=== PATIENT | female | born 1960 | race Caucasian/White ===

== ENCOUNTER 2021-08-21 14:22 | Emergency (ER) | payer OTHER ==
[~2021-08-21] VITALS: Ht 165.1 cm; Wt 65.3 kg
--- NOTE | 2021-08-21 14:47 | NUR ---
CALLED TO TRIAGE NO ANSWER.
--- NOTE | 2021-08-21 14:57 | NUR ---
BIB FOR C/O RIGHT LOWER ABD PAIN RADIATING TO BACK /10 AND C/O PAINFULL URINATION, BLOOD TINGED URINE. X4 DAYS. ABDOMEN SOFT AND NON-DISTENDED. WILL CONTINUE TO MONITOR THE PATIENT.
--- NOTE | 2021-08-21 15:04 | NUR ---
URINE COLLECTED AND SENT TO THE LAB
--- NOTE | 2021-08-21 15:14 | NUR ---
STARTED IV LINE, BLOOD SPECIMEN COLLECTED AND SENT TO THE LAB. THE LINE IS SALINE LOCKED.
[2021-08-21] MEDS ORDERED: KETOROLAC TROMETHAMINE INJ 30 MG/ML VIAL IV ONE (15:30)
[2021-08-21] MEDS ORDERED: KETOROLAC TROMETHAMINE 15 MG/ML VIAL ONE (15:34)
[2021-08-21 15:36] LABS: BASOPHILS % (AUTO) 0.4 % (0.0-2.0); EOSINOPHILS % (AUTO) 0.5 % (0.0-6.0); HEMATOCRIT 39 % (33-45); HEMOGLOBIN 12.6 g/dL (11.5-14.8); MEAN CORPUSCULAR HGB CONC 33 g/dl (31.0-36.0); MEAN CORPUSCULAR VOLUME 87 fL (82-100); MONOCYTES # (AUTO) 0.5 K/uL (0.1-1.30); MONOCYTES % (AUTO) 4.7 % (2.0-12.0); NEUTROPHILS # (AUTO) 8.2 K/uL (1.8-8.9); NEUTROPHILS % (AUTO) 84.4 % (43.0-81.0); PLATELET COUNT (AUTO) 221 K/uL (150-450); RED BLOOD CELL COUNT(AUTO) 4.44 MIL/uL (4.0-5.2); WHITE BLOOD COUNT (AUTO) 9.7 K/uL (4.3-11.0)
[2021-08-21 15:39] LABS: BILIRUBIN,URINE NEGATIVE (NEGATIVE); COLOR,URINE YELLOW (YELLOW); LEUKOCYTE ESTERASE ,URINE MODERATE (NEGATIVE); NITRITE, URINE POSITIVE (NEGATIVE); PROTEIN,URINE >=300 mg/dl (NEGATIVE); UGLUCOSE NEGATIVE (NEGATIVE); UROBILINOGEN,URINE 0.2 EU/dL (0.2)
[2021-08-21 15:48] LABS: RBC,URINE 51-80 /HPF (0-2); WBC,URINE TOO NUMEROUS TO COUN /HPF (0-3)
[2021-08-21 15:49] LABS: BACTERIA,URINE 3+ /HPF (None Seen); SQUAMOUS EPITHELIAL CELL,UR 0-2 /HPF (None Seen)
[2021-08-21 15:55] LABS: BILIRUBIN,DIRECT 0.1 mg/dL (0.0-0.2); BILIRUBIN,TOTAL 0.3 mg/dL (0.2-1.0); CREATININE 0.7 mg/dL (0.6-1.3); POTASSIUM 3.6 mmol/L (3.5-5.1); TOTAL PROTEIN, SERUM 8.3 g/dL (6.4-8.2)
--- NOTE | 2021-08-21 15:57 | NUR ---
PATIENT RETURNED TO ER ROOM [address]
[2021-08-21] MEDS ORDERED: CEFTRIAXONE 1GM BAG (ER ONLY) 50 ML IV ONE (17:43)
[2021-08-21] MEDS ORDERED: IBUPROFEN 600 MG TABLET ONE (17:43)
[2021-08-21] MEDS ORDERED: IBUPROFEN 600 MG TABLET PO ONE (18:00)
[2021-08-21] MEDS ORDERED: CEFTRIAXONE 1 G in IV D5W 50 ML IV ONE (18:00)
[2021-08-21] MEDS ORDERED: CEPH250C PO (18:27)
[2021-08-21] MEDS ORDERED: IBUP-1955 PO (18:28)
[2021-08-21 18:49] VITALS: BP 129/76
--- NOTE | 2021-08-21 18:49 | NUR ---
IV removed. Catheter intact and site benign. Pressure and 4x4 applied to site. No bleeding noted.Patient discharged to home in stable condition. Written and verbal after care instructions given. Patient verbalizes understanding of instruction.
== END 2021-08-21 18:49 | disposition home or self-care (01) ==
LOC: ER 14:27
DX: N12 Tubulo-interstitial nephritis, not specified as acute or chronic (principal); Z90.89 Acquired absence of other organs; Z98.890 Other specified postprocedural states
CPT/HCPCS: 36415; 74176; 80048; 80076; 81001; 83690; 85025; 87077; 87086; 87186; 96365; 99284; J0696; J1885

== ENCOUNTER 2023-10-12 23:39 | Inpatient (IN) | payer OTHER ==
[~2023-10-12] VITALS: Ht 152.4 cm; Wt 60.9 kg
[~2023-10-12 23:39] MED LIST: CEPH250C PO; IBUP-1955 PO
[2023-10-13] MEDS ORDERED: MORPHINE SULFATE INJ 4 MG/ML DISP.SYRIN ONE (00:17)
[2023-10-13] MEDS ORDERED: ONDANSETRON HCL/PF 4 MG/2 ML VIAL ONE (00:17)
[2023-10-13] MEDS ORDERED: IV NS 0.9% 1,000 ML BAG IV ONE (00:30)
[2023-10-13] MEDS ORDERED: ONDANSETRON HCL/PF 4 MG/2 ML VIAL IVP ONE (00:30)
[2023-10-13] MEDS ORDERED: MORPHINE SULFATE INJ 2 MG/ML DISP.SYRIN IV ONE (00:30)
[2023-10-13 00:37] LABS: BASOPHILS % (AUTO) 0.3 % (0.0-2.0); EOSINOPHILS % (AUTO) 0.1 % (0.0-6.0); HEMATOCRIT 39 % (33-45); HEMOGLOBIN 12.8 g/dL (11.5-14.8); LYMPHOCYTES # (AUTO) 0.7 K/uL (0.8-4.8); LYMPHOCYTES % (AUTO) 8.9 % (20.0-44.0); MEAN CORPUSCULAR HEMOGLOBIN 28 PG (26.0-33.0); MEAN CORPUSCULAR HGB CONC 33 g/dl (31.0-36.0); MEAN CORPUSCULAR VOLUME 86 fL (82-100); MONOCYTES # (AUTO) 0.2 K/uL (0.1-1.30); MONOCYTES % (AUTO) 3.3 % (2.0-12.0); NEUTROPHILS # (AUTO) 6.5 K/uL (1.8-8.9); NEUTROPHILS % (AUTO) 87.4 % (43.0-81.0); PLATELET COUNT (AUTO) 272 K/uL (150-450); RED BLOOD CELL COUNT(AUTO) 4.58 MIL/uL (4.0-5.2); RED CELL DISTRIBUTION WIDTH 13.9 % (11.5-15.0); WHITE BLOOD COUNT (AUTO) 7.4 K/uL (4.3-11.0)
[2023-10-13 00:46] LABS: CALCIUM, SERUM 9.8 mg/dL (8.5-10.1); CARBON DIOXIDE 25 mmol/L (21-32); CHLORIDE 102 mmol/L (98-107); CREATININE 0.6 mg/dL (0.6-1.3); GLUCOSE 148 mg/dL (74-106); POTASSIUM 3.2 mmol/L (3.5-5.1); SODIUM SERUM 138 mmol/L (136-145); UREA NITROGEN, BLOOD 26 mg/dL (7-18)
[2023-10-13 00:47] LABS: APPEARANCE,URINE CLEAR (CLEAR); COLOR,URINE YELLOW (YELLOW)
[2023-10-13 00:48] LABS: ADD URINE CULTURE NO; BACTERIA,URINE Rare /HPF (None Seen); BILIRUBIN,URINE NEGATIVE (NEGATIVE); BLOOD, URINE TRACE Ery/uL (NEGATIVE); KETONES,URINE 3+ mg/dL (NEGATIVE); LEUKOCYTE ESTERASE ,URINE NEGATIVE (NEGATIVE); NITRITE, URINE NEGATIVE (NEGATIVE); PROTEIN,URINE TRACE mg/dl (NEGATIVE); RBC,URINE 0-2 /HPF (0-2); SQUAMOUS EPITHELIAL CELL,UR Few /HPF (None Seen); UGLUCOSE NEGATIVE (NEGATIVE); UROBILINOGEN,URINE 0.2 EU/dL (0.2); WBC,URINE 0-2 /HPF (0-3)
[2023-10-13 00:57] LABS: INR 1.03 (0.91-1.10); PARTIAL THROMBOPLASTIN TIME 26.5 SEC (24.3-34.3); PROTHROMBIN TIME 10.9 SECS (9.2-11.1)
[2023-10-13 01:00] LABS: ALANINE AMINOTRANSFERASE 18 U/L (12-78); ALBUMIN 3.8 g/dL (3.4-5.0); ALKALINE PHOSPHATASE 56 U/L (46-116); ASPARTATE AMINOTRANSFERASE 18 U/L (15-37); BILIRUBIN,DIRECT 0.1 mg/dL (0.0-0.2); BILIRUBIN,TOTAL 0.2 mg/dL (0.2-1.0); LIPASE 41 U/L (16-77); TOTAL PROTEIN, SERUM 8.5 g/dL (6.4-8.2)
[2023-10-13] MEDS ORDERED: MORPHINE SULFATE INJ 2 MG/ML DISP.SYRIN IV PRN (03:00)
[2023-10-13] MEDS ORDERED: Z GUARD REMEDY 4 OZ OINT TP PRN (03:00)
[2023-10-13] MEDS ORDERED: ONDANSETRON HCL/PF 4 MG/2 ML VIAL IVP PRN (03:00)
[2023-10-13] MEDS ORDERED: ACETAMINOPHEN 325 MG TABLET PO PRN ×2 (03:00→16:00)
[2023-10-13] MEDS: POTASSIUM CL. PREMIX PERIPHER. 50 ML IV SCH ×2 (04:00→06:30)
[2023-10-13] MEDS ORDERED: POTASSIUM CL. PREMIX PERIPHER. 50 ML IV SCH (05:00)
[2023-10-13] MEDS ORDERED: POTASSIUM CL. PREMIX PERIPHER. 50 ML ONE ×3 (06:13→10:41)
[2023-10-13] MEDS ORDERED: BETA45OI2 TP (08:11)
[2023-10-13] MEDS ORDERED: PANTOPRAZOLE 40 MG VIAL ONE (09:25)
[2023-10-13] MEDS: PANTOPRAZOLE 40 MG VIAL IV SCH (09:30)
[2023-10-13] MEDS ORDERED: FENTANYL PF 100MCG/2ML AMPUL ONE (11:13)
[2023-10-13] MEDS ORDERED: BUPIVACAINE MPF 0.5% W/EPI INJ 30 ML VIAL ONE (11:35)
[2023-10-13] MEDS ORDERED: LIDOCAINE 1% INJ 50 ML MDV IJ ONE (11:35)
[2023-10-13] MEDS ORDERED: BACITRACIN ZINC OINT (15 GM) 15 GM TUBE TP ONE (13:08)
[2023-10-13 15:00] VITALS: BP 151/74; TEMP 98.3; O2SAT 95
[2023-10-13] MEDS: IV D5/ 0.9% NACL 1,000 ML IV PRN (15:38)
[2023-10-13 16:00] VITALS: BP 159/82; TEMP 98.4; O2SAT 96
[2023-10-13] MEDS ORDERED: HYDROMORPHONE 1 MG/1 ML DISP.SYRIN IV PRN ×2 (16:00)
[2023-10-13] MEDS: CELECOXIB 100 MG CAPSULE PO SCH (16:05)
[2023-10-13] MEDS: GABAPENTIN 100 MG CAPSULE PO SCH ×2 (16:06→23:35)
[2023-10-13] MEDS: ZOSYN IVPB 3.375 G in IV D5W 50ml IV SCH ×2 (16:24→23:35)
[2023-10-13 20:00] VITALS: BP 133/78; TEMP 98.5; O2SAT 96
[2023-10-14 00:07] VITALS: BP 137/72; TEMP 99; O2SAT 95
[2023-10-14] MEDS: CELECOXIB 100 MG CAPSULE PO SCH ×2 (03:21→15:13)
[2023-10-14 04:20] VITALS: BP 114/66; TEMP 98.9; O2SAT 95
[2023-10-14] MEDS: IV D5/ 0.9% NACL 1,000 ML IV PRN (04:46)
[2023-10-14 07:00] VITALS: BP 116/71; TEMP 97.5; O2SAT 97
[2023-10-14 08:08] LABS: BASOPHILS % (AUTO) 0.2 % (0.0-2.0); EOSINOPHILS % (AUTO) 0.4 % (0.0-6.0); HEMATOCRIT 37 % (33-45); HEMOGLOBIN 12.3 g/dL (11.5-14.8); LYMPHOCYTES # (AUTO) 1.3 K/uL (0.8-4.8); LYMPHOCYTES % (AUTO) 19.1 % (20.0-44.0); MEAN CORPUSCULAR HEMOGLOBIN 28 PG (26.0-33.0); MEAN CORPUSCULAR HGB CONC 33 g/dl (31.0-36.0); MEAN CORPUSCULAR VOLUME 85 fL (82-100); MONOCYTES # (AUTO) 0.5 K/uL (0.1-1.30); MONOCYTES % (AUTO) 7.3 % (2.0-12.0); NEUTROPHILS # (AUTO) 5.1 K/uL (1.8-8.9); PLATELET COUNT (AUTO) 255 K/uL (150-450); RED BLOOD CELL COUNT(AUTO) 4.38 MIL/uL (4.0-5.2); RED CELL DISTRIBUTION WIDTH 13.6 % (11.5-15.0); WHITE BLOOD COUNT (AUTO) 6.9 K/uL (4.3-11.0)
[2023-10-14] MEDS: GABAPENTIN 100 MG CAPSULE PO SCH ×2 (08:11→15:11)
[2023-10-14] MEDS: PANTOPRAZOLE 40 MG VIAL IV SCH (08:11)
[2023-10-14] MEDS: ZOSYN IVPB 3.375 G in IV D5W 50ml IV SCH ×3 (08:12→23:36)
[2023-10-14 08:21] LABS: BILIRUBIN,DIRECT 0.1 mg/dL (0.0-0.2); BILIRUBIN,TOTAL 0.5 mg/dL (0.2-1.0); CALCIUM, SERUM 8.9 mg/dL (8.5-10.1); CREATININE 0.5 mg/dL (0.6-1.3); PHOSPHORUS 2.8 mg/dL (2.5-4.9); POTASSIUM 3.1 mmol/L (3.5-5.1); TOTAL PROTEIN, SERUM 7.2 g/dL (6.4-8.2)
[2023-10-14] MEDS: POTASSIUM CL. PREMIX PERIPHER. 50 ML IV SCH ×4 (10:22→15:12)
[2023-10-14 11:30] VITALS: BP 130/80; TEMP 97.9; O2SAT 96
[2023-10-14] MEDS ORDERED: MAG HYDROX/AL HYDROX/SIMETH 30 ML UDC PO ONE (15:30)
[2023-10-14 16:00] VITALS: BP 130/77; TEMP 97.5; O2SAT 96
[2023-10-14 20:00] VITALS: BP 137/81; TEMP 98.1; O2SAT 95
[2023-10-15] MEDS: GABAPENTIN 100 MG CAPSULE PO SCH ×2 (00:10→08:50)
[2023-10-15] MEDS: IV D5/ 0.9% NACL 1,000 ML IV PRN (01:56)
[2023-10-15] MEDS: CELECOXIB 100 MG CAPSULE PO SCH (04:33)
[2023-10-15 07:00] VITALS: BP 138/83; TEMP 99.3; O2SAT 97
[2023-10-15 07:26] LABS: BASOPHILS % (AUTO) 0.6 % (0.0-2.0); EOSINOPHILS # (AUTO) 0.1 K/uL (0.0-0.7); EOSINOPHILS % (AUTO) 1.8 % (0.0-6.0); HEMATOCRIT 36 % (33-45); LYMPHOCYTES # (AUTO) 1.3 K/uL (0.8-4.8); MEAN CORPUSCULAR HEMOGLOBIN 29 PG (26.0-33.0); MEAN CORPUSCULAR HGB CONC 34 g/dl (31.0-36.0); MEAN CORPUSCULAR VOLUME 85 fL (82-100); MONOCYTES # (AUTO) 0.4 K/uL (0.1-1.30); MONOCYTES % (AUTO) 7.4 % (2.0-12.0); NEUTROPHILS # (AUTO) 3.3 K/uL (1.8-8.9); NEUTROPHILS % (AUTO) 65.2 % (43.0-81.0); PLATELET COUNT (AUTO) 228 K/uL (150-450); RED BLOOD CELL COUNT(AUTO) 4.23 MIL/uL (4.0-5.2); RED CELL DISTRIBUTION WIDTH 13.1 % (11.5-15.0); WHITE BLOOD COUNT (AUTO) 5.1 K/uL (4.3-11.0)
[2023-10-15 08:13] LABS: CALCIUM, SERUM 8.8 mg/dL (8.5-10.1); CREATININE 0.5 mg/dL (0.6-1.3); POTASSIUM 3.2 mmol/L (3.5-5.1)
[2023-10-15] MEDS: PANTOPRAZOLE 40 MG VIAL IV SCH (08:55)
[2023-10-15] MEDS: ZOSYN IVPB 3.375 G in IV D5W 50ml IV SCH (08:56)
[2023-10-15] MEDS ORDERED: GABA100C PO (11:49)
[2023-10-15] MEDS ORDERED: CELE100C PO (11:49)
[2023-10-15] MEDS ORDERED: AMOX-430 PO (11:49)
[2023-10-15] MEDS ORDERED: ACET325T53 PO ×2 (11:49)
[2023-10-15] MEDS ORDERED: POTASSIUM CL. PREMIX PERIPHER. 50 ML IV SCH (12:00)
[2023-10-15] MEDS: POTASSIUM CHLORIDE 20 MEQ TAB.PRT.SR PO SCH ×2 (13:06→13:42)
== END 2023-10-15 14:45 | disposition home or self-care (01) | DRG 228 ==
LOC: ER 23:40 → TRANSITION 10-13 05:35 → TELE 10-13 15:28 → MED 10-14 18:00
PROVIDERS: ADMIT Nurse Practitioner Acute Care; ATTEND Nurse Practitioner Acute Care
PROC: 0YU70JZ Supplement Right Femoral Region with Synthetic Substitute, Open Approach (ICD-10-PCS; principal; 2023-10-13)
PROC: 0DBU0ZZ Excision of Omentum, Open Approach (ICD-10-PCS; 2023-10-13)
DX: K41.30 Unilateral femoral hernia, with obstruction, without gangrene, not specified as recurrent (principal); K40.30 Unilateral inguinal hernia, with obstruction, without gangrene, not specified as recurrent; E87.6 Hypokalemia; R79.89 Other specified abnormal findings of blood chemistry; K66.0 Peritoneal adhesions (postprocedural) (postinfection)
CPT/HCPCS: 36415; 71045-TC; 80048-TC; 80076-TC; 81001; 83690-TC; 83735-TC; 84100-TC; 84484-TC; 85025-TC; 85730-TC; 88305-TC; A4223; A6403; C1781; C9113; G0378; J0690; J1100; J1885; J2270; J2405; J2543; J2704; J3010; J3480; J3490; J7030; J7042; J7060

== ENCOUNTER 2023-11-02 18:27 | Emergency (ER) | payer OTHER ==
[~2023-11-02] VITALS: Ht 154.9 cm; Wt 61.2 kg
[~2023-11-02 18:27] MED LIST changes: +ACET325T53 PO; +AMOX-430 PO; +BETA45OI2 TP; +CELE100C PO; -CEPH250C PO; +GABA100C PO; -IBUP-1955 PO
[2023-11-02] MEDS ORDERED: NITR100C6 PO (18:55)
[2023-11-02] MEDS ORDERED: NITROFURANTOIN/MONOHYDRATE MACROCRYSTALS 100 MG CAPSULE ONE ×2 (19:01→19:04)
[2023-11-02] MEDS: NITROFURANTOIN/MONOHYDRATE MACROCRYSTALS 100 MG CAPSULE PO ONE (19:17)
[2023-11-02 19:19] VITALS: BP 126/69; TEMP 98.3; O2SAT 100
[2023-11-03 10:47] LABS: APPEARANCE,URINE CLEAR (CLEAR); BILIRUBIN,URINE NEGATIVE (NEGATIVE); BLOOD, URINE 1+ Ery/uL (NEGATIVE); COLOR,URINE YELLOW (YELLOW); KETONES,URINE NEGATIVE (NEGATIVE); LEUKOCYTE ESTERASE ,URINE TRACE (NEGATIVE); NITRITE, URINE NEGATIVE (NEGATIVE); PROTEIN,URINE NEGATIVE (NEGATIVE); UGLUCOSE NEGATIVE (NEGATIVE); UROBILINOGEN,URINE 0.2 EU/dL (0.2)
[2023-11-03 10:52] LABS: ADD URINE CULTURE NO; BACTERIA,URINE Rare /HPF (None Seen); SQUAMOUS EPITHELIAL CELL,UR Few /HPF (None Seen); WBC,URINE 0-2 /HPF (0-3)
== END 2023-11-02 19:19 | disposition home or self-care (01) ==
LOC: ER 18:27
DX: N39.0 Urinary tract infection, site not specified (principal)
CPT/HCPCS: 81001